=== PATIENT | female | born 1945 | race Caucasian/White ===

== ENCOUNTER → 2019-09-14 | Outpatient (CLI) | payer MEDICARE, OTHER ==
[~2019-09-14] MED LIST: LEVSOD75 PO; Red Yeast Rice600 MG PO; Super Calcium600 MG PO; VITAMIN D31000 UNIT PO
[2019-09-14 12:18] LABS: Calcium, Urine 19.7 mg/dL (< 17.5); Calcium, Urine Calculation 295.5 mg/24hrs (42.0-353.0)
== END | disposition home or self-care (01) ==
LOC: OLS 08:15 → LAB SHORT 08:15 → LAB FUT 09-10 08:10
PROVIDERS: Internal Medicine
DX: E83.52 Hypercalcemia (principal)
CPT/HCPCS: 81050; 82340

== ENCOUNTER → 2021-05-08 | Outpatient (CLI) | payer MEDICARE, OTHER | LOC: LAB 11:32 → LAB SHORT 11:32 | DX: D48.5 Neoplasm of uncertain behavior of skin (principal); D16.02 Benign neoplasm of scapula and long bones of left upper limb | CPT/HCPCS: 88305 ==

== ENCOUNTER 2022-02-03 07:40 | Day surgery (SDC) | payer MEDICARE, OTHER ==
[~2022-02-03] VITALS: Ht 162.6 cm; Wt 61.4 kg
[~2022-02-03 07:40] MED LIST changes: +LATISSE5 ML
== END 2022-02-03 09:57 | disposition home or self-care (01) ==
LOC: ORSCSDS 07:40
PROVIDERS: Internal Medicine Gastroenterology
PROC: 0DBN8ZX Excision of Sigmoid Colon, Via Natural or Artificial Opening Endoscopic, Diagnostic (ICD-10-PCS; principal; 2022-02-03 09:00)
PROC: 0DBH8ZX Excision of Cecum, Via Natural or Artificial Opening Endoscopic, Diagnostic (ICD-10-PCS; principal; 2022-02-03 09:00)
DX: Z12.11 Encounter for screening for malignant neoplasm of colon (principal); Z86.010 Personal history of colon polyps; D12.5 Benign neoplasm of sigmoid colon; D12.0 Benign neoplasm of cecum; K57.30 Diverticulosis of large intestine without perforation or abscess without bleeding; Z79.899 Other long term (current) drug therapy
CPT/HCPCS: 88305; J2704; J7120

== ENCOUNTER 2022-09-08 13:52 | Inpatient (IN) | payer OTHER, MEDICARE ==
[~2022-09-08] VITALS: Ht 162.6 cm; Wt 61.7 kg
[2022-09-08 15:52] LABS: BASOPHILS ABSOLUTE AUTO 0.04 K/mm3 (0.00-0.23); BASOPHILS PERCENT AUTO 0 % (0-2); EOSINOPHILS ABSOLUTE AUTO 0.01 K/mm3 (0.00-0.68); EOSINOPHILS PERCENT AUTO 0 % (0-6); Hematocrit 43.2 % (33.0-51.0); Hemoglobin 14.2 g/dL (11.5-16.0); IMMATURE GRAN ABSOLUTE AUTO 0.04 K/mm3 (0.00-0.10); IMMATURE GRAN PERCENT AUTO 0 % (0-1); LYMPHOCYTES ABSOLUTE AUTO 0.64 K/mm3 (0.84-5.20); LYMPHOCYTES PERCENT AUTO 6 % (21-46); MONOCYTES ABSOLUTE AUTO 0.38 K/mm3 (0.16-1.47); MONOCYTES PERCENT AUTO 3 % (4-13); Mean Corpuscular HGB 28.1 pg (26.0-34.0); Mean Corpuscular HGB Conc 32.9 g/dL (31.5-36.5); Mean Corpuscular Volume 86 fL (80-100); Mean Platelet Volume 10.1 fL (9.1-12.4); NEUTROPHILS ABSOLUTE AUTO 10.43 K/mm3 (1.96-9.15); NEUTROPHILS PERCENT AUTO 91 % (41-73); Platelet Count 200 K/mm3 (150-400); RDW Coefficient Variation 13.1 % (11.7-14.2); RDW Standard Deviation 40.5 fL (35.1-46.3); Red Blood Cell Count 5.05 M/mm3 (3.80-5.20); White Blood Cell Count 11.54 K/mm3 (4.00-11.30)
[2022-09-08 16:04] LABS: Bun/Creatinine Ratio 25.7 (12.0-20.0); Calcium, Blood 10.4 mg/dL (8.5-10.1); Creatinine, Blood 0.9 mg/dL (0.40-1.00); Potassium, Blood 4.3 mmol/L (3.5-5.5)
[2022-09-08 16:57] LABS: International Normalized Ratio 0.98; Prothrombin Time Results 10.3 Sec (9.7-11.5)
--- NOTE | 2022-09-08 20:24 | NUR ---
SHIFT SUMMARY PT ARRIVED FROM ER THIS AFTERNOON AT 1700, PT ALERT ORIENTED AND PAIN MANAGED AT TIME OF ARRIVAL. SINCE ARRIVAL PAIN HAS BEEN MANAGED WITH IV FENTANYL. PT ALERT, ORIENTED AND PLEASANT. PT TOLERATED PO. SHE IS ABLE TO USE THE BEDPAN. PLAN FOR SURGERY TOMORROW. REPORT GIVEN TO ERICKA MELENDEZ.
--- NOTE | 2022-09-09 00:32 | NUR ---
ASSUMED CARE OF PT. PT AWAKE IN BED, NO DISTRESS NOTED. PT ASSISTED ON BEDPAN, PT TO CALL WHEN FINISHED.
--- NOTE | 2022-09-09 00:32 | NUR ---
TRANSFERED CARE TO RAIN CRAIG RN.
[2022-09-09 04:31] LABS: BASOPHILS ABSOLUTE AUTO 0.04 K/mm3 (0.00-0.23); BASOPHILS PERCENT AUTO 1 % (0-2); EOSINOPHILS ABSOLUTE AUTO 0.08 K/mm3 (0.00-0.68); EOSINOPHILS PERCENT AUTO 1 % (0-6); Hematocrit 42.5 % (33.0-51.0); Hemoglobin 13.9 g/dL (11.5-16.0); IMMATURE GRAN ABSOLUTE AUTO 0.02 K/mm3 (0.00-0.10); IMMATURE GRAN PERCENT AUTO 0 % (0-1); LYMPHOCYTES ABSOLUTE AUTO 0.77 K/mm3 (0.84-5.20); LYMPHOCYTES PERCENT AUTO 12 % (21-46); MONOCYTES ABSOLUTE AUTO 0.43 K/mm3 (0.16-1.47); MONOCYTES PERCENT AUTO 7 % (4-13); Mean Corpuscular HGB 28.1 pg (26.0-34.0); Mean Corpuscular HGB Conc 32.7 g/dL (31.5-36.5); Mean Corpuscular Volume 86 fL (80-100); Mean Platelet Volume 10.1 fL (9.1-12.4); NEUTROPHILS ABSOLUTE AUTO 5.17 K/mm3 (1.96-9.15); NEUTROPHILS PERCENT AUTO 80 % (41-73); Platelet Count 196 K/mm3 (150-400); RDW Coefficient Variation 13.2 % (11.7-14.2); RDW Standard Deviation 41.1 fL (35.1-46.3); Red Blood Cell Count 4.94 M/mm3 (3.80-5.20); White Blood Cell Count 6.51 K/mm3 (4.00-11.30)
[2022-09-09 04:53] LABS: Albumin, Blood 3.3 g/dL (3.4-5.0); Albumin/Globulin Ratio 0.9 (0.8-1.8); Bilirubin, Total 1.3 mg/dL (0.1-1.0); Bun/Creatinine Ratio 23.3 (12.0-20.0); Calcium, Blood 9.5 mg/dL (8.5-10.1); Creatinine, Blood 0.86 mg/dL (0.40-1.00); Globulin, Blood 3.8 g/dL (2.2-4.0); Potassium, Blood 3.9 mmol/L (3.5-5.5); Total Protein, Blood 7.1 g/dL (6.4-8.2)
--- NOTE | 2022-09-09 06:35 | NUR ---
PT VSS T/O NIGHT. BP ELEVATED, PT ASYMPTOMATIC. PT PAIN MGD W/25 MCG FENTANYL AND ICE W/REP RELIEF. PT NPO POST MIDNIGHT FOR PLAN FOR SURGERY TODAY. IVF CONT PER ORDERS.
--- NOTE | 2022-09-09 12:15 | NUR ---
"Spiritual Care | Pt. Request Pt. is awake in bed and welcomes my visit. Friends are also present. Pt. is pleasant but a little unsettled about surgery on her hip. Pt. was wondering if Father Joel was at the hospital today. Pt. verblaized gratitude for the spiritual care visit."
--- NOTE | 2022-09-09 18:41 | NUR ---
PT ARRIVED BACK TO THE ROOM AT 1805. PT IS ALERT AND ORIENTED X3 BUT FEELS DISORIENTED. PT KEEPS STATING "SOMETHING IS WRONG" AND THIS ALL "FEELS LIKE A DREAM." PT HAS BEEN REORIENTED THAT SHE HAD SURGERY, SHE IS STILL ANXIOUS AND QUESTIONS IF SHE HAD SURGERY. PT WAS SHOWN HER DRESSING OVER HER INSICION SITE BUT STILL QUESTIONS IF SHE HAD SURGERY. PT DENIES PAIN. VSS. R HIP DRESSING C/D/I. PT'S FRIEND IS AT THE BEDSIDE FOR SUPPORT. PT REQUIRES FREQUENT REASSURANCE AND THERAPEUTIC LISTENING. WILL CONTINUE TO MONITOR.
--- NOTE | 2022-09-09 19:36 | NUR ---
SHIFT SUMMARY PT IS POD#0 FROM R HIP REPAIR WITH DR. SWANN. PT DENIES PAIN POST OP. PT WAS DISORIENTED AFTER SURGERY, MENTATION IS NOW CLEARING. PT'S FRIEND IS AT THE BEDSIDE FOR SUPPORT. REPORT GIVEN TO ERICKA MELENDEZ.
[2022-09-10 06:16] LABS: BASOPHILS ABSOLUTE AUTO 0.02 K/mm3 (0.00-0.23); BASOPHILS PERCENT AUTO 0 % (0-2); EOSINOPHILS ABSOLUTE AUTO 0.01 K/mm3 (0.00-0.68); EOSINOPHILS PERCENT AUTO 0 % (0-6); Hematocrit 33.2 % (33.0-51.0); Hemoglobin 10.9 g/dL (11.5-16.0); IMMATURE GRAN ABSOLUTE AUTO 0.04 K/mm3 (0.00-0.10); IMMATURE GRAN PERCENT AUTO 0 % (0-1); LYMPHOCYTES ABSOLUTE AUTO 0.71 K/mm3 (0.84-5.20); LYMPHOCYTES PERCENT AUTO 7 % (21-46); MONOCYTES ABSOLUTE AUTO 0.76 K/mm3 (0.16-1.47); MONOCYTES PERCENT AUTO 8 % (4-13); Mean Corpuscular HGB 28.5 pg (26.0-34.0); Mean Corpuscular HGB Conc 32.8 g/dL (31.5-36.5); Mean Corpuscular Volume 87 fL (80-100); Mean Platelet Volume 10.5 fL (9.1-12.4); NEUTROPHILS PERCENT AUTO 84 % (41-73); Platelet Count 154 K/mm3 (150-400); RDW Coefficient Variation 13.2 % (11.7-14.2); RDW Standard Deviation 41.7 fL (35.1-46.3); Red Blood Cell Count 3.83 M/mm3 (3.80-5.20); White Blood Cell Count 9.54 K/mm3 (4.00-11.30)
[2022-09-10 06:36] LABS: Bun/Creatinine Ratio 22.9 (12.0-20.0); Calcium, Blood 9.7 mg/dL (8.5-10.1); Creatinine, Blood 0.87 mg/dL (0.40-1.00); Potassium, Blood 4.5 mmol/L (3.5-5.5)
--- NOTE | 2022-09-10 06:41 | NUR ---
TOWBOAT ENGINEER SUMMARY POD 0 FOR R ROSA M. PT DID WELL THROUGH THE NIGHT. HAS BEEN ABLE TO AMBULATE WITH A 1 ASSIST AND FWW. VERY MINIMAL PAIN THROUGH THE NIGHT CONTROLLED WITH SCHEDULED MEDICATIONS. PT TOLERATING PO AND HAS VOIDED MULTIPLE TIMES. PT TO HAVE PHYSICAL THERAPY LATER TODAY. VSS, WILL CONTINUE TO MONITOR.
[2022-09-10] MEDS ORDERED: ACET325 PO (11:51)
[2022-09-10] MEDS ORDERED: DOCU100 PO (11:52)
[2022-09-10] MEDS ORDERED: Norco 5-325 Ta1 EACH PO (11:55)
[2022-09-10] MEDS ORDERED: ASPI81CH PO (11:59)
--- NOTE | 2022-09-10 13:20 | NUR ---
DISCHARGE PT HAS CLEARED THERAPY. PAIN WELL CONTROLLED w/ TYLENOL. EATING, DRINKING, & VOIDING WELL. DRSGS, SCRIPT, & POLAR PACK SENT w/ PT. ESCORTED OUT VIA W/C.
== END 2022-09-10 13:14 | disposition home health service (06) | DRG 522 ==
LOC: ER 13:52 → SURS 16:14
PROVIDERS: Emergency Medicine; Internal Medicine; Orthopaedic Surgery; ADMIT Internal Medicine
PROC: 0SR904Z Replacement of Right Hip Joint with Ceramic on Polyethylene Synthetic Substitute, Open Approach (ICD-10-PCS; principal; 2022-09-09 15:00)
DX: S72.001A Fracture of unspecified part of neck of right femur, initial encounter for closed fracture (principal); E03.9 Hypothyroidism, unspecified; W01.0XXA Fall on same level from slipping, tripping and stumbling without subsequent striking against object, initial encounter; Z90.710 Acquired absence of both cervix and uterus; Z90.721 Acquired absence of ovaries, unilateral; Z98.890 Other specified postprocedural states; Z98.41 Cataract extraction status, right eye; Z90.49 Acquired absence of other specified parts of digestive tract; Z79.899 Other long term (current) drug therapy
CPT/HCPCS: 36415; 73502; 80048; 80053; 85025; 85610; 96374; 97110; 97116; 97162; 99284-25; A9270; C1776; J0171; J0690; J0735; J1100; J1170; J1885; J2250; J2370; J2405; J2704; J2795; J3010; J7030; J7120

== ENCOUNTER → 2023-06-09 | Outpatient (CLI) | payer MEDICARE, OTHER ==
[~2023-06-09] MED LIST changes: +ACET325 PO; +ASPI81CH PO; +DOCU100 PO; +Norco 5-325 Ta1 EACH PO
== END | disposition home or self-care (01) ==
LOC: LAB SHORT 08:28 → PLD 08:28
DX: D23.21 Other benign neoplasm of skin of right ear and external auricular canal (principal); L57.0 Actinic keratosis
CPT/HCPCS: 88305